=== PATIENT | male | born 1950 | race Caucasian/White ===

== ENCOUNTER 2023-08-18 14:18 | Outpatient (CLI) | payer MEDICARE, OTHER | END 2023-08-18 14:19 | disposition home or self-care (01) | LOC: BICCT 14:18 | PROVIDERS: ATTEND Orthopaedic Surgery | DX: M17.12 Unilateral primary osteoarthritis, left knee (principal); M81.0 Age-related osteoporosis without current pathological fracture; M25.462 Effusion, left knee ==

== ENCOUNTER 2023-09-02 08:18 | Outpatient (CLI) | payer MEDICARE, OTHER ==
[2023-09-02 09:56] LABS: Bilirubin Neg (Negative); Blood, Urine Negative (Negative); Clarity Clear (Clear); Glucose, Urine (Dipstick) Normal (Negative); Ketone, Urine Negative (Negative); Leukocyte Negative (Negative); Nitrite Negative (Negative); Protein, Urine (Dipstick) Negative (Neg-Trace); Urobilinogen Normal mg/dL (Less than 2); pH, Urine 6.5 (5.0-9.0)
[2023-09-02 09:57] LABS: #Basophils 0.02 10x3/uL (0.0-0.2); #Eosinphils 0.06 10x3/uL (0.0-0.5); #Monocytes 0.58 10x3/uL (0.0-1.1); #Neutrophils 4.66 10x3/uL (1.5-8.4); %Basophils 0.3 % (0.0-2.0); %Eosinophils 0.8 % (0.0-6.0); %Lymphocytes 24.6 % (18.0-47.0); %Monocytes 8.2 % (0.0-10.0); %Neutrophils 65.8 % (40.0-75.0); Hemoglobin 14.6 g/dL (13.5-17.5); Mean Corpuscular Hemoglobin 31.9 pg (27.0-33.0); Mean Corpuscular Volume 93.9 fL (81.2-95.1); Mean Platelet Volume 10.6 fL (7.4-10.4); Platelet Count 154 10x3/uL (150-450); RBC Distribution Width 12.9 % (11.5-14.5); Red Blood Cell (RBC) Count 4.58 10x6/uL (4.32-5.72); White Blood Cell (WBC) Count 7.1 10x3/uL (3.5-10.5)
[2023-09-02 10:11] LABS: Prothrombin Time 10.4 sec (9.5-12.1)
[2023-09-02 10:12] LABS: Anion Gap 12 mmol/L (10-20); BUN (Urea Nitrogen) 21 mg/dL (8.4-25.7); Calc. Creatinine Clearance 0 mL/min (70-130); Calcium 9.1 mg/dL (7.8-10.44); Carbon Dioxide 25 mmol/L (23-31); Chloride 106 mmol/L (98-107); Estimated GFR 78; Glucose 91 mg/dL (83-110); Potassium 4.3 mmol/L (3.5-5.1); Sodium 139 mmol/L (136-145)
== END 2023-09-02 08:19 | disposition home or self-care (01) ==
LOC: LABBT 08:18
PROVIDERS: ATTEND Orthopaedic Surgery
DX: Z01.818 Encounter for other preprocedural examination (principal); M17.12 Unilateral primary osteoarthritis, left knee; R00.1 Bradycardia, unspecified
CPT/HCPCS: 71046; 80048; 81003; 85025; 85610; 87081; 93005; 93010

== ENCOUNTER 2023-09-07 06:23 | Observation (INO) | payer MEDICARE ==
[2023-09-02 09:07] VITALS: BMI 25.7
[2023-09-07] MEDS ORDERED: Sodium Chloride 0.9% 100 ML ONE ×2 (07:32→09:33)
[2023-09-07] MEDS ORDERED: Vancomycin (BATCH) 1.5 GM/300 ML BAG ONE (07:32)
[2023-09-07] MEDS ORDERED: Tranexamic Acid 1,000 MG/10 ML VIAL ONE ×2 (07:32→12:20)
[2023-09-07] MEDS ORDERED: Midazolam HCl 2 mg/2 ml Vial ONE (07:45)
[2023-09-07] MEDS ORDERED: fentaNYL 50 mcg/mL 1 mL Vial ONE ×3 (07:45→12:30)
[2023-09-07] MEDS ORDERED: Bupivacaine PF 0.5% 30 ML VIAL ONE ×2 (07:46→09:14)
[2023-09-07] MEDS ORDERED: fentaNYL 50 mcg/mL 1 mL Vial SLOW IVP PRN (08:52)
[2023-09-07] MEDS ORDERED: Ondansetron PF 4 MG/2 ML Vial IVP PRN ×2 (09:00→12:02)
[2023-09-07] MEDS ORDERED: HYDROcodone/Acetaminophen 10/325 mg Tablet PO PRN ×2 (09:00)
[2023-09-07] MEDS ORDERED: Ropivacaine 0.2% 550 ML 550 ML NERVE BLCK SCH (09:00)
[2023-09-07] MEDS ORDERED: Promethazine HCl 25 MG/ML VIAL IM PRN ×2 (09:00→12:02)
[2023-09-07] MEDS ORDERED: Zolpidem Tartrate 5 MG TAB PO PRN ×2 (09:00→12:02)
[2023-09-07] MEDS ORDERED: Bupivacaine HCl 0.5%/Epinephrine 1:200,000/PF 30 ml Vial ONE (09:00)
[2023-09-07] MEDS ORDERED: traMADol HCl 50 MG TAB PO PRN (09:00)
[2023-09-07] MEDS ORDERED: Dexamethasone 4 mg/ml Vial ONE (09:28)
[2023-09-07] MEDS ORDERED: Lidocaine 1% PF 5 ML VIAL ONE (09:28)
[2023-09-07] MEDS ORDERED: Ondansetron PF 4 MG/2 ML Vial ONE (09:28)
[2023-09-07] MEDS ORDERED: PROPOFOL 20 ML ONE (09:28)
[2023-09-07] MEDS ORDERED: CEFAZOLIN 2 GM VIAL ONE (09:32)
[2023-09-07] MEDS ORDERED: ePHEDrine Sulfate 50 MG/10 ML VIAL ONE (10:07)
[2023-09-07] MEDS ORDERED: fentaNYL PF 100 MCG/2 ML SYRINGE ONE (10:13)
[2023-09-07] MEDS ORDERED: Glycopyrrolate 0.2 MG/ML 5 ML SYRINGE ONE (10:54)
[2023-09-07] MEDS ORDERED: diphenhydrAMINE 25 MG CAP PO PRN (12:02)
[2023-09-07] MEDS ORDERED: Acetaminophen 325 MG TAB PO PRN (12:02)
[2023-09-07] MEDS ORDERED: Tranexamic Acid 1,000 MG in Sodium Chloride 0.9% 100 ML IVPB SCH (12:15)
[2023-09-07] MEDS ORDERED: Ketorolac Tromethamine 30 MG (1 mL) VIAL ONE (12:32)
[2023-09-07] MEDS: Ketorolac Tromethamine 30 MG (1 mL) VIAL IVP SCH (12:34)
[2023-09-07] MEDS: Sodium Chloride 0.9% 1,000 ML IV SCH (14:02)
[2023-09-07] MEDS: CEFAZOLIN 2 GM in Sodium Chloride 0.9% 100 ML IVPB SCH (17:13)
[2023-09-07] MEDS: Vancomycin (BATCH) 1.5 GM in Premix 1 BAG IVPB SCH (17:14)
[2023-09-07] MEDS: traMADol HCl 50 MG TAB PO PRN (17:22)
[2023-09-07] MEDS: Senokot S 8.6-50 MG TAB PO SCH (21:52)
[2023-09-07] MEDS: Aspirin 81 mg Enteric Coated Tablet PO SCH (21:52)
[2023-09-07] MEDS: Ferrous Gluconate 324 MG TAB PO SCH (21:53)
[2023-09-08 05:03] LABS: Hematocrit 36.2 % (42.0-52.0); Hemoglobin 12.2 g/dL (14.0-18.0); Mean Corpuscular HGB CONC 33.7 g/dL (32.0-36.0); Mean Corpuscular Hemoglobin 31.8 pg (27.0-31.0); Mean Corpuscular Volume 94.3 fL (78.0-98.0); Mean Platelet Volume 10.6 fL (7.4-10.4); Platelet Count 139 10x3/uL (130-400); Red Blood Cell (RBC) Count 3.84 mill/uL (4.70-6.10)
[2023-09-08 08:23] VITALS: BP 160/88; TEMP 98
[2023-09-08] MEDS: Multivitamin W/ Minerals 1 TAB PO SCH (08:59)
[2023-09-08] MEDS: Finasteride 5 MG TAB PO SCH (08:59)
[2023-09-08] MEDS: Tamsulosin HCl 0.4 MG CAP PO SCH (09:00)
== END 2023-09-08 11:10 | disposition home or self-care (01) ==
LOC: SDC 06:23 → SURG B 13:05
PROVIDERS: ADMIT Orthopaedic Surgery; ATTEND Orthopaedic Surgery
PROC: 0SRD0JZ Replacement of Left Knee Joint with Synthetic Substitute, Open Approach (ICD-10-PCS; principal; 2023-09-07)
DX: M17.12 Unilateral primary osteoarthritis, left knee (principal); Z98.890 Other specified postprocedural states; Z96.651 Presence of right artificial knee joint; Z79.899 Other long term (current) drug therapy
CPT/HCPCS: 0055T; 27447; 36415; 85027; A4306; C1713; C1776; C1889; J0665; J1100; J1885; J2250; J2405; J2704; J2795; J3010; J3370; J3490